=== PATIENT | male | born 1990 | race Caucasian/White ===

== ENCOUNTER 2017-03-21 14:30 | Emergency (ER) | payer BC, OTHER ==
[~2017-03-21 14:30] MED LIST: NAPR550 PO; TYLE3 PO; Z.0.NO CURRENT MEDS
[2017-03-21 14:39] VITALS: BP 171/81; PULSE 74; RESP 20; TEMP 98.2; O2SAT 99
--- NOTE | 2017-03-21 14:56 | RADRPT ---
EXAM DATE/TIME: 03/21/2017 14:45 [place] COMPARISON: No previous studies available for comparison. INDICATIONS : Right shoulder pain after climbing a rope on obstacle course and felt a pop. MEDICAL HISTORY : None. SURGICAL HISTORY : None. ENCOUNTER: Initial ACUITY: 1 day PAIN SCORE: 7/10 LOCATION: Right Shoulder, lateral aspect FINDINGS: Multiple view examination of the right shoulder demonstrates no evidence of fracture or dislocation. The glenohumeral and acromioclavicular joints are maintained. There is normal range of motion betwe en internal and external rotation. Bony mineralization is normal. CONCLUSION: Negative trauma study. Dante Tran MD on March 21, 2017 at 14:52 Board Certified Radiologist. This report was verified electronically.
[2017-03-21] MEDS ORDERED: ACETAMINOPHEN/HYDROcodone 325 MG/5 MG TAB PO ONE (15:15)
[2017-03-21] MEDS ORDERED: HYDR-3533 PO (15:16)
--- NOTE | 2017-03-21 15:23 | PD ---
HPI Chief Complaint: Injury Time Seen by Provider: 15:18 Travel History International Travel<30 days: No Contact w/Intl Traveler<30days: No Traveled to known affect area: No History of Present Illness HPI 27-year-old male that presents to the ED for evaluation of injury to his right shoulder. Per patient he was climbing a wall and he felt his shoulder pop. Per patient he felt like it dislocated and he was able to put it back in place that ever since his been having a lot of pain with movement. He is able to do it however. Per patient his pain is 7 out of 10. He states history of this in the past. He denies any fall to it. No head injury or loss of consciousness. No numbness, tilling, weakness. No other medical issues. Previous history of injury to the shoulder. PFSH Past Medical History Medical History: Denies Significant Hx Diminished Hearing: No Immunizations Current: Yes Social History Alcohol Use: Yes (COUPLE DRINKS ON WEEKENDS) Tobacco Use: No Substance Use: No Allergies-Medications (Allergen,Severity, Reaction): Coded Allergies: No Known Allergies (Verified , 11/23/07) Reported Meds & Prescriptions Reported Meds & Active Scripts Active Lortab (Hydrocodone-Acetaminophen) 5-325 Mg Tab 1 Tab PO Q6H PRN Review of Systems Except as stated in HPI: all other systems reviewed are Neg Physical Exam Narrative GENERAL: SKIN: Warm and dry. HEAD: Atraumatic. Normocephalic. EYES: Pupils equal and round. No scleral icterus. No injection or drainage. ENT: No nasal bleeding or discharge. Mucous membranes pink and moist. Tongue is midline. No uvula deviation. NECK: Trachea midline. No JVD. CARDIOVASCULAR: Regular rate and rhythm. No murmurs, S3, S4. RESPIRATORY: No accessory muscle use. Clear to auscultation. Breath sounds equal bilaterally. GASTROINTESTINAL: Abdomen soft, non-tender, nondistended. Hepatic and splenic margins not palpable. MUSCULOSKELETAL: Extremities without clubbing, cyanosis, or edema. No obvious deformities. Full range of motion of the upper and lower extremities bilaterally. 2+ pulses bilaterally. Patient does have pain with internal and external rotation of the right shoulder but more with internal rotation. Able to do it however. 2+ pulses bilaterally. Neurovascular intact. Sensation appears to be intact. NEUROLOGICAL: Awake and alert. No obvious cranial nerve deficits. Motor grossly within normal limits. Five out of 5 muscle strength in the arms and legs. Normal speech. PSYCHIATRIC: Appropriate mood and affect; insight and judgment normal. Data Data Last Documented VS Vital Signs Date Time Temp Pulse Resp B/P Pulse Ox O2 Delivery O2 Flow Rate FiO2 03/21/17 14:39 98.2 74 20 171/81 99 Orders Shoulder, Complete (>2vws) (03/21/17 ) Acetamin-Hydrocod 325-5 Mg ([place] 5-325 (03/21/17 15:15) Splint Or Brace Apply/Monitor (03/21/17 15:15) [facility] Medical Decision Making Medical Screen Exam Complete: Yes Emergency Medical Condition: Yes Medical Record Reviewed: Yes Interpretation(s) Last Impressions Shoulder X-Ray 03/21/17 0000 Signed Impressions: Service Date/Time: Sunday, March 21, 2017 14:45 - CONCLUSION: Negative trauma study. Dante Tran MD Differential Diagnosis Fracture versus dislocation versus tendinitis versus rotator cuff injury Narrative Course 27-year-old male that presents to the ED for evaluation of injury to the right shoulder. Patient was properly examined and was found to have signs and symptoms consistent appears to be right shoulder injury. X-ray was done and was negative. Patient was reassured. At this time this appears to be more of a tendinitis. Possibly patient did dislocate the shoulder and he has internal injury to the shoulder. At this time I recommend sling. Patient was given pain medication and perception for this. Patient was told to apply ice or warm compresses. Follow with orthopedic surgeon. See ED for worsening symptoms. Diagnosis Primary Impression: Shoulder injury Qualified Code: S49.91XA - Injury of right shoulder, initial encounter Referrals: John Perez Jr., MD Patient Instructions: General Instructions, Narcotic given in the ED Additional Instructions: Take medications as prescribed. Follow-up with PCP. See ED for any worsening symptoms. Do not drink or drive while taking pain medication. Apply ice or heat as needed for pain Med/Other Pt SpecificInfo: Prescription(s) given Scripts Hydrocodone-Acetaminophen (Lortab)5-325 Mg Tab1 Tab PO Q6H PRN (PAIN) #20 TAB Prov:Terrance Marcano MD 03/21/17 Disposition: 01 DISCHARGE HOME Condition: Stable Rico Rollins Mar 21, 2017 15:23
[2017-03-21] MEDS ORDERED: oxyCODONE/ACETAMINOPHEN 5 MG/325 MG TAB PO ONE (16:45)
== END 2017-03-21 17:16 | disposition home or self-care (01) ==
LOC: NEPE 14:30
DX: S49.91XA Unspecified injury of right shoulder and upper arm, initial encounter (principal); X58.XXXA Exposure to other specified factors, initial encounter
CPT/HCPCS: 73030; 99283